=== PATIENT | female | born 1955 ===

== ENCOUNTER 2018-01-13 11:24 | Emergency (ER) | payer OTHER, MEDICAID ==
[2018-01-13 11:30] VITALS: BP 147/80
--- NOTE | 2018-01-13 13:21 | Emergency Department Report ---
- General Chief Complaint: Sore Throat Stated Complaint: THROAT PAIN Time Seen by Provider: 01/13/18 12:36 Source: patient Mode of arrival: Ambulatory Limitations: No Limitations - History of Present Illness Initial Comments: 62 yo female with sore throat and left ear pain 2 days. Reports cough, denies fever. Denies shortness of breath, nausea, vomiting, diarrhea. MD Complaint: cough, sore throat -: days(s) (2) Severity: mild Quality: sharp Consistency: intermittent Improves With: nothing Worsens With: other (swallowing) Associated Symptoms: sore throat, cough. denies: fever, chills, chest pain, shortness of breath, nausea, vomiting, diarrhea - Related Data Previous Rx's Medication Instructions Recorded Last Taken Type ALBUTEROL Inhaler(NF) [VENTOLIN 1 puff IH Q4HR PRN #1 inha 01/13/18 Unknown Rx Inhaler(NF)] Benzonatate [Tessalon Perles] 100 mg PO Q8HR PRN #20 capsule 01/13/18 Unknown Rx Naproxen [Naprosyn] 500 mg PO BID #20 tablet 01/13/18 Unknown Rx Allergies Allergy/AdvReac Type Severity Reaction Status Date / Time Penicillins Allergy Rash Verified 01/13/18 11:30 ED Review of Systems ROS: Stated complaint: THROAT PAIN Other details as noted in HPI Comment: All other systems reviewed and negative Constitutional: denies: chills, fever ENT: ear pain, throat pain Respiratory: cough. denies: shortness of breath Cardiovascular: denies: chest pain Gastrointestinal: denies: nausea, vomiting, diarrhea ED Past Medical Hx - Past Medical History Hx Hypertension: Yes Hx Diabetes: Yes - Surgical History Past Surgical History?: Yes Additional Surgical History: Right foot surgery - Social History Smoking Status: Never Smoker Substance Use Type: None - Medications Home Medications: Home Medications Medication Instructions Recorded Confirmed Last Taken Type ALBUTEROL Inhaler(NF) [VENTOLIN 1 puff IH Q4HR PRN #1 inha 01/13/18 Unknown Rx Inhaler(NF)] Benzonatate [Tessalon Perles] 100 mg PO Q8HR PRN #20 capsule 01/13/18 Unknown Rx Naproxen [Naprosyn] 500 mg PO BID #20 tablet 01/13/18 Unknown Rx ED Physical Exam - General Limitations: No Limitations General appearance: alert, in no apparent distress - Head Head exam: Present: atraumatic, normocephalic - Eye Eye exam: Present: normal appearance - ENT ENT exam: Present: normal orophraynx, mucous membranes moist, TM's normal bilaterally - Neck Neck exam: Present: full ROM, lymphadenopathy (anterior cervical lymphadenopathy present). Absent: tenderness - Respiratory Respiratory exam: Present: normal lung sounds bilaterally. Absent: respiratory distress - Cardiovascular Cardiovascular Exam: Present: regular rate, normal rhythm - GI/Abdominal GI/Abdominal exam: Present: soft. Absent: tenderness - Extremities Exam Extremities exam: Present: normal inspection - Neurological Exam Neurological exam: Present: alert, oriented X3 - Psychiatric Psychiatric exam: Present: normal affect, normal mood - Skin Skin exam: Present: warm, dry, intact, normal color. Absent: rash ED Course Vital Signs 01/13/18 11:28 Temperature 99.9 F H Pulse Rate 91 H Respiratory 20 Rate Blood Pressure 147/80 O2 Sat by Pulse 98 Oximetry ED Medical Decision Making - Differential Diagnosis strep throat, viral pharyngitis, URI Critical care attestation.: If time is entered above; I have spent that time in minutes in the direct care of this critically ill patient, excluding procedure time. ED Disposition Clinical Impression: Upper respiratory infection, Acute viral pharyngitis Disposition: - TO HOME OR SELFCARE Is pt being admited?: No Condition: Stable Instructions: Pharyngitis (ED), Upper Respiratory Infection (ED) Prescriptions: ALBUTEROL Inhaler(NF) [VENTOLIN Inhaler(NF)] 1 puff IH Q4HR PRN #1 inha PRN Reason: Wheezing Benzonatate [Tessalon Perles] 100 mg PO Q8HR PRN #20 capsule PRN Reason: Cough Naproxen [Naprosyn] 500 mg PO BID #20 tablet Referrals: PRIMARY CARE, [Primary Care Provider] - 3-5 Days Time of Disposition: 13:20
== END 2018-01-13 13:29 | disposition home or self-care (01) ==
LOC: ED 11:24
DX: J06.9 Acute upper respiratory infection, unspecified (principal); J02.9 Acute pharyngitis, unspecified; I10 Essential (primary) hypertension; E11.9 Type 2 diabetes mellitus without complications; Z88.0 Allergy status to penicillin
CPT/HCPCS: 87116; 87430; 99283